=== PATIENT | female | born 1945 | race Caucasian/White ===

== ENCOUNTER 2021-04-02 12:57 | Inpatient (IN) | payer OTHER ==
[~2021-04-02] VITALS: Ht 163 cm; Wt 82.2 kg
[2021-04-02 17:34] LABS: BASOPHIL 0.2 % (0-2); EOSINOPHIL 3.5 % (0-7); HCT 31.3 % (37.0-47.0); HGB 11.1 g/dl (12.5-16.0); LYMPHOCYTE 17.8 % (15-48); MCH 35.9 pg (25.0-31.0); MCHC 35.5 g/dL (32.0-36.0); MCV 101.3 fL (78.0-100.0); MONOCYTE 10.4 % (0-12); MPV 10.4 fL (6.0-9.5); NEUTROPHIL 67.4 % (41-80); NRBC 0; PLT 131 K/uL (150-400); RBC 3.09 M/uL (4.20-5.40); RDW 12.6 % (11.5-14.0); WBC 9.6 K/uL (4.0-10.5)
[2021-04-02] MEDS ORDERED: AMLODIPINE BESY10 MG PO (17:36)
[2021-04-02] MEDS ORDERED: DIVALPROEX SOD500 M1 PO (17:37)
[2021-04-02] MEDS ORDERED: CARVEDILOL12.5 MG PO (17:37)
[2021-04-02] MEDS ORDERED: LEVETIRACETAM500 MG PO (17:38)
[2021-04-02 17:49] LABS: BUN/CREAT RATIO (CALC) 21.2 RATIO; CREATININE 1.32 mg/dL (0.51-0.95); POTASSIUM 4.3 mmol/L (3.5-5.1)
[2021-04-02 18:04] LABS: CORONAVIRUS 2019 SARS-COV-2 NEGATIVE (NEGATIVE); INFLUENZA A NAA NEGATIVE (NEGATIVE)
[2021-04-02] MEDS ORDERED: SYNTHROID75 MCG PO (21:45)
[2021-04-03 05:41] LABS: BASOPHIL 0.1 % (0-2); EOSINOPHIL 2.3 % (0-7); HCT 28.3 % (37.0-47.0); LYMPHOCYTE 12.2 % (15-48); MCH 35.6 pg (25.0-31.0); MCHC 35.3 g/dL (32.0-36.0); MCV 100.7 fL (78.0-100.0); MONOCYTE 9.8 % (0-12); MPV 10.3 fL (6.0-9.5); NEUTROPHIL 75.1 % (41-80); NRBC 0; PLT 103 K/uL (150-400); RBC 2.81 M/uL (4.20-5.40); RDW 12.6 % (11.5-14.0); WBC 8.6 K/uL (4.0-10.5)
[2021-04-03 05:54] LABS: INR 1.01 (0.9-1.2); PROTHROMBIN TIME 12.6 SECONDS (11.4-13.6)
[2021-04-03 06:00] LABS: BILIRUBIN NEGATIVE (NEGATIVE); BLOOD TRACE-INTACT Ery/uL (NEGATIVE); CLARITY CLEAR (CLEAR); COLOR YELLOW (YELLOW); GLUCOSE (U) NORMAL (NORMAL); LEUKOCYTES NEGATIVE Leu/uL (NEGATIVE); NITRITE NEGATIVE (NEGATIVE); PROTEIN NEGATIVE (NEGATIVE); SPECIFIC GRAVITY 1.015 (1.001-1.030); UROBILINOGEN 0.2 mg/dL (0.2-1.0)
[2021-04-03 06:10] LABS: BUN/CREAT RATIO (CALC) 20.8 RATIO; CREATININE 1.01 mg/dL (0.51-0.95); MAGNESIUM 1.8 mg/dL (1.8-2.4); POTASSIUM 3.9 mmol/L (3.5-5.1)
[2021-04-04 05:53] LABS: BASOPHIL 0.3 % (0-2); EOSINOPHIL 0.9 % (0-7); HCT 29.2 % (37.0-47.0); LYMPHOCYTE 14.9 % (15-48); MCH 35.2 pg (25.0-31.0); MCHC 34.2 g/dL (32.0-36.0); MCV 102.8 fL (78.0-100.0); MONOCYTE 10.7 % (0-12); MPV 10.7 fL (6.0-9.5); NEUTROPHIL 72.7 % (41-80); NRBC 0; PLT 109 K/uL (150-400); RBC 2.84 M/uL (4.20-5.40); RDW 12.5 % (11.5-14.0); WBC 7.6 K/uL (4.0-10.5)
[2021-04-04 06:26] LABS: ALBUMIN 2.1 g/dL (3.4-5.0); BILIRUBIN - TOTAL 0.6 mg/dL (0.2-1.0); CREATININE 0.91 mg/dL (0.51-0.95); GLOBULIN (CALCULATION) 3.1 g/dL; TOTAL PROTEIN 5.2 g/dL (6.4-8.2)
[2021-04-06 06:20] LABS: BASOPHIL 0.4 % (0-2); EOSINOPHIL 2.5 % (0-7); HCT 23.2 % (37.0-47.0); HGB 7.9 g/dl (12.5-16.0); LYMPHOCYTE 22.5 % (15-48); MCH 35.7 pg (25.0-31.0); MCHC 34.1 g/dL (32.0-36.0); MONOCYTE 12.6 % (0-12); MPV 10.8 fL (6.0-9.5); NRBC 0; PLT 105 K/uL (150-400); RBC 2.21 M/uL (4.20-5.40); RDW 12.9 % (11.5-14.0); WBC 5.2 K/uL (4.0-10.5)
[2021-04-06 07:07] LABS: BUN/CREAT RATIO (CALC) 20.8 RATIO; CREATININE 1.06 mg/dL (0.51-0.95); POTASSIUM 4.1 mmol/L (3.5-5.1)
[2021-04-06] MEDS ORDERED: NORCO 5-325 TA1 EACH PO (13:40)
[2021-04-06] MEDS ORDERED: DUONEB 2.5-0.5M1 AMP NEB (13:40)
[2021-04-06] MEDS ORDERED: XARELTO10 MG PO (13:40)
[2021-04-06] MEDS ORDERED: PROTONIX 40MG T40 MG PO (13:40)
== END 2021-04-06 16:20 | DRG 480 ==
LOC: FER 12:57 → FICU 19:58 → FMS 19:58 → FICU 04-04 10:12
PROVIDERS: Hospitalist; Internal Medicine; Nurse Practitioner; Nurse Practitioner Family; Orthopaedic Surgery; ADMIT Internal Medicine
PROC: 0QS704Z Reposition Left Upper Femur with Internal Fixation Device, Open Approach (ICD-10-PCS; principal; 2021-04-04 08:05)
DX: S72.142A Displaced intertrochanteric fracture of left femur, initial encounter for closed fracture (principal); J96.01 Acute respiratory failure with hypoxia; W01.0XXA Fall on same level from slipping, tripping and stumbling without subsequent striking against object, initial encounter; Y92.009 Unspecified place in unspecified non-institutional (private) residence as the place of occurrence of the external cause; F03.90 Unspecified dementia, unspecified severity, without behavioral disturbance, psychotic disturbance, mood disturbance, and anxiety; G40.909 Epilepsy, unspecified, not intractable, without status epilepticus; I10 Essential (primary) hypertension; F17.210 Nicotine dependence, cigarettes, uncomplicated; Z79.899 Other long term (current) drug therapy; J44.9 Chronic obstructive pulmonary disease, unspecified; Z83.3 Family history of diabetes mellitus; Z20.822 Contact with and (suspected) exposure to COVID-19; E03.9 Hypothyroidism, unspecified; R41.82 Altered mental status, unspecified; D64.9 Anemia, unspecified
CPT/HCPCS: 36415; 71045; 73501; 73502; 73700; 76000; 80048; 80053; 81001; 83735; 85025; 85610; 93005; 94010; 94640; 94667; 94668; 96374; 97162; 97166; 97530-GP; 97535; C1713; J0697; J1100; J1650; J2270; J2405; J2543; J2704; J3010; J7030; U0002

== ENCOUNTER 2021-05-06 15:16 | Inpatient (IN) | payer OTHER ==
[~2021-05-06] VITALS: Ht 162.6 cm; Wt 70.0 kg
[~2021-05-06 15:16] MED LIST: AMLODIPINE BESY10 MG PO; CARVEDILOL12.5 MG PO; DIVALPROEX SOD500 M1 PO; DUONEB 2.5-0.5M1 AMP NEB; LEVETIRACETAM500 MG PO; NORCO 5-325 TA1 EACH PO; PROTONIX 40MG T40 MG PO; SYNTHROID75 MCG PO; XARELTO10 MG PO
[2021-05-06 18:00] LABS: BASOPHIL 0.4 % (0-2); EOSINOPHIL 3.5 % (0-7); HCT 34.9 % (37.0-47.0); HGB 11.6 g/dl (12.5-16.0); LYMPHOCYTE 36.4 % (15-48); MCH 35.2 pg (25.0-31.0); MCHC 33.2 g/dL (32.0-36.0); MCV 105.8 fL (78.0-100.0); MONOCYTE 8.6 % (0-12); NEUTROPHIL 50.4 % (41-80); NRBC 0; PLT 117 K/uL (150-400); RDW 13.9 % (11.5-14.0); WBC 4.6 K/uL (4.0-10.5)
[2021-05-06 18:02] LABS: BUN/CREAT RATIO (CALC) 17.6 RATIO; CREATININE 2.33 mg/dL (0.51-0.95); POTASSIUM 4.6 mmol/L (3.5-5.1)
[2021-05-06] MEDS ORDERED: VENTOLIN HFA18 GM INH (21:31)
[2021-05-06] MEDS ORDERED: NORVASC5 MG PO (21:32)
[2021-05-06] MEDS ORDERED: COREG 6.25MG6.25 MG PO (21:32)
[2021-05-06] MEDS ORDERED: DEPAKOTE ER250 MG PO (21:33)
[2021-05-06] MEDS ORDERED: KEPPRA250 MG PO (21:33)
[2021-05-06] MEDS ORDERED: LASIX20 MG PO (21:34)
[2021-05-06] MEDS ORDERED: ARICEPT 5MG TABL5 MG PO (21:34)
[2021-05-06] MEDS ORDERED: SYNTHROID100 MCG PO (21:35)
[2021-05-06] MEDS ORDERED: PROTONIX 40MG T40 MG PO (21:35)
[2021-05-06] MEDS ORDERED: NORCO 5-325 TA1 EACH PO (21:35)
--- NOTE | 2021-05-07 01:28 | NUR ---
0115 REPORT TO SARA NAVAS RN.
[2021-05-07 05:52] LABS: BASOPHIL 0.6 % (0-2); EOSINOPHIL 4.7 % (0-7); HCT 33.6 % (37.0-47.0); HGB 10.9 g/dl (12.5-16.0); LYMPHOCYTE 42.1 % (15-48); MCH 34.2 pg (25.0-31.0); MCHC 32.4 g/dL (32.0-36.0); MCV 105.3 fL (78.0-100.0); MONOCYTE 9.4 % (0-12); MPV 11.1 fL (6.0-9.5); NEUTROPHIL 42.6 % (41-80); NRBC 0; RBC 3.19 M/uL (4.20-5.40); RDW 13.5 % (11.5-14.0); WBC 3.6 K/uL (4.0-10.5)
[2021-05-07 05:54] LABS: PLT 94 K/uL (150-400)
[2021-05-07 06:10] LABS: ALBUMIN 2.1 g/dL (3.4-5.0); BILIRUBIN - TOTAL 0.3 mg/dL (0.2-1.0); BUN/CREAT RATIO (CALC) 16.6 RATIO; CREATININE 2.11 mg/dL (0.51-0.95); GLOBULIN (CALCULATION) 3.1 g/dL; MAGNESIUM 1.8 mg/dL (1.8-2.4); POTASSIUM 4.3 mmol/L (3.5-5.1); TOTAL PROTEIN 5.2 g/dL (6.4-8.2)
--- NOTE | 2021-05-07 18:56 | NUR ---
05/07/21 Ms. Aviles lives at home with son and [id number]. Patient was not able to participate in an assessment. Nursing reports family's plans for patient to return home with continuation of [facility] services. - [facility] was notified [facility] admission. Please notify [facility] at [phone] should patient discharge over the weekend.
[2021-05-08 04:09] LABS: BASOPHIL 0.5 % (0-2); EOSINOPHIL 5.5 % (0-7); HCT 28.8 % (37.0-47.0); HGB 9.4 g/dl (12.5-16.0); LYMPHOCYTE 50.9 % (15-48); MCH 34.8 pg (25.0-31.0); MCHC 32.6 g/dL (32.0-36.0); MCV 106.7 fL (78.0-100.0); MONOCYTE 9.1 % (0-12); MPV 11.2 fL (6.0-9.5); NEUTROPHIL 33.2 % (41-80); NRBC 0; RDW 13.6 % (11.5-14.0); WBC 3.9 K/uL (4.0-10.5)
[2021-05-08 04:11] LABS: PLT 81 K/uL (150-400)
[2021-05-08 04:31] LABS: BUN/CREAT RATIO (CALC) 15.3 RATIO; C-REACTIVE PROTEIN 0.4 mg/dL (<=0.90); CREATININE 1.77 mg/dL (0.51-0.95); POTASSIUM 4.7 mmol/L (3.5-5.1)
[2021-05-09 04:20] LABS: BASOPHIL 0.5 % (0-2); HGB 9.1 g/dl (12.5-16.0); LYMPHOCYTE 46.5 % (15-48); MCHC 32.5 g/dL (32.0-36.0); MCV 107.7 fL (78.0-100.0); MONOCYTE 7.5 % (0-12); MPV 11.4 fL (6.0-9.5); NRBC 0; RDW 13.6 % (11.5-14.0)
[2021-05-09 04:23] LABS: PLT 82 K/uL (150-400)
[2021-05-09 04:41] LABS: BUN/CREAT RATIO (CALC) 14.7 RATIO; CREATININE 1.5 mg/dL (0.51-0.95); POTASSIUM 4.3 mmol/L (3.5-5.1)
[2021-05-10 06:23] LABS: BASOPHIL 0.7 % (0-2); EOSINOPHIL 8.4 % (0-7); HCT 30.2 % (37.0-47.0); HGB 9.8 g/dl (12.5-16.0); LYMPHOCYTE 41.3 % (15-48); MCH 34.5 pg (25.0-31.0); MCHC 32.5 g/dL (32.0-36.0); MCV 106.3 fL (78.0-100.0); MONOCYTE 8.8 % (0-12); MPV 11.5 fL (6.0-9.5); NEUTROPHIL 39.7 % (41-80); NRBC 0; RBC 2.84 M/uL (4.20-5.40); RDW 13.2 % (11.5-14.0); WBC 5.4 K/uL (4.0-10.5)
[2021-05-10 06:37] LABS: BUN/CREAT RATIO (CALC) 12.9 RATIO; CREATININE 1.24 mg/dL (0.51-0.95); POTASSIUM 4.2 mmol/L (3.5-5.1)
[2021-05-10 07:11] LABS: PLT 87 K/uL (150-400)
[2021-05-10 13:18] LABS: IRON % SATURATION 28.5 %SAT (20-50)
[2021-05-10 13:47] LABS: FOLIC ACID (SERUM) 10.8 ng/mL (8.6-58.9)
--- NOTE | 2021-05-10 15:40 | NUR ---
05/10/21 1510 MIDLINE PLACEMENT ORDER RECEIVED FOR MIDLINE INSERTION. PROCEDURE EXPLAINED TO PATIENT. PT PREPPED AND DRAPED IN STERILE FASHION. THE PT'S RIGHT UPPER ARM BASILIC VEIN WAS VISUALIZED USING THE SITE RITE 6 ULTRA SOUND. A 21 GA NEEDLE WAS USED. GOOD BLOOD RETURN WAS NOTED. THE GUIDE WIRE THREADED EASILY. THE NEEDLE WAS REMOVED AND THE MIDLINE CATHETER WAS PLACED OVER THE WIRE. THE WIRE AND SHEATH WERE REMOVED. GOOD BLOOD RETURN WAS NOTED. A CONNECTOR WAS FLUSHED AND PLACED OVER THE END OF THE CATHETER. A STAT LOCK WAS PLACED ON THE CATHETER AND A STERILE BIOPATCH WAS ALSO PLACED ON THE INSERTION SITE. A STERILE TEGADERM WAS PLACED OVER THE MIDLINE CATHETER. PT TOLERATED WELL. PT HAS A 20GA 10 CM POWERGLIDE MIDLINE CATHETER. GOOD FOR 29 DAYS. THIS IS NOT A CENTRAL LINE. REPORT TO Emiliana CHAVIRA RN. TOLERATED WELL.
[2021-05-11 06:27] LABS: BASOPHIL 0.4 % (0-2); EOSINOPHIL 7.7 % (0-7); HCT 29.2 % (37.0-47.0); HGB 9.7 g/dl (12.5-16.0); LYMPHOCYTE 41.5 % (15-48); MCH 34.8 pg (25.0-31.0); MCHC 33.2 g/dL (32.0-36.0); MCV 104.7 fL (78.0-100.0); MONOCYTE 8.3 % (0-12); MPV 10.8 fL (6.0-9.5); NEUTROPHIL 41.7 % (41-80); NRBC 0; PLT 90 K/uL (150-400); RBC 2.79 M/uL (4.20-5.40); RDW 13.2 % (11.5-14.0); WBC 4.7 K/uL (4.0-10.5)
[2021-05-11 06:43] LABS: BUN/CREAT RATIO (CALC) 12.1 RATIO; CREATININE 1.16 mg/dL (0.51-0.95); MAGNESIUM 1.5 mg/dL (1.8-2.4); POTASSIUM 4.4 mmol/L (3.5-5.1)
--- NOTE | 2021-05-11 13:11 | NUR ---
05/11/21 Therapy recommended SNF for ongoing therapy and patient also requires IV antibiotic treatment. Marissa Aviles, [id number] initially chose [facility]. However, her insurance coverage for SNU days has been exhausted. Juliet requested placement at [facility], community health. A ref was made to [facility]. They will submit to insurance and expect a response in 2 - 3 days. Ms. Aviles will be discharged home with IV antibiotics and therapy through [facility]. Family cost will be $230 - $240. Marissa reports to cost to be affordable. - Patient has a wc, rw, 3in1, s. chair. A gell overlay was ordered from [facility].
--- NOTE | 2021-05-11 17:06 | NUR ---
05/11/21 A referral was made to [facility] for a hospital bed per family request.
== END 2021-05-11 18:45 | disposition home health service (06) | DRG 602 ==
LOC: FER 15:16 → FMS 19:33
PROVIDERS: Emergency Medicine; Internal Medicine; Nurse Practitioner; ADMIT Internal Medicine
PROC: 05HY33Z Insertion of Infusion Device into Upper Vein, Percutaneous Approach (ICD-10-PCS; principal; 2021-05-10)
DX: L03.116 Cellulitis of left lower limb (principal); G93.41 Metabolic encephalopathy; N17.9 Acute kidney failure, unspecified; B95.61 Methicillin susceptible Staphylococcus aureus infection as the cause of diseases classified elsewhere; G40.909 Epilepsy, unspecified, not intractable, without status epilepticus; D69.6 Thrombocytopenia, unspecified; L89.151 Pressure ulcer of sacral region, stage 1; I12.9 Hypertensive chronic kidney disease with stage 1 through stage 4 chronic kidney disease, or unspecified chronic kidney disease; E16.2 Hypoglycemia, unspecified; Z20.822 Contact with and (suspected) exposure to COVID-19; N18.30 Chronic kidney disease, stage 3 unspecified; E86.0 Dehydration; D63.1 Anemia in chronic kidney disease; J44.9 Chronic obstructive pulmonary disease, unspecified; F03.90 Unspecified dementia, unspecified severity, without behavioral disturbance, psychotic disturbance, mood disturbance, and anxiety; E03.9 Hypothyroidism, unspecified; F17.210 Nicotine dependence, cigarettes, uncomplicated; Z83.3 Family history of diabetes mellitus; Z79.899 Other long term (current) drug therapy
CPT/HCPCS: 36415; 80048; 80053; 80202; 82607; 82746; 83540; 83550; 83605; 83735; 84145; 84443; 85025; 86140; 87070; 87077; 87186; 87205; 94010; 94640; 94760; 97110; 97162; 97167; 97530; 97530-GP; 97535; 99284; C1751; J0696; J1642; J3370; J3475; J7030; J7040; J7042; J7050; U0002